=== PATIENT | female | born 1975 | race African-American/Black ===

== ENCOUNTER 2021-04-06 16:53 | Emergency (ER) | payer OTHER ==
[~2021-04-06] VITALS: Ht 165.1 cm; Wt 90.7 kg
[2021-04-06 16:57] VITALS: BP 117/70
[2021-04-06] MEDS ORDERED: NORCO5 PO (17:30)
== END 2021-04-06 17:55 | disposition home or self-care (01) ==
LOC: ER 16:53
DX: M25.561 Pain in right knee (principal); M79.89 Other specified soft tissue disorders; X50.1XXA Overexertion from prolonged static or awkward postures, initial encounter; Y93.89 Activity, other specified; Y92.89 Other specified places as the place of occurrence of the external cause; Y99.8 Other external cause status